=== PATIENT | male | born 1985 | race African-American/Black ===

== ENCOUNTER 2016-07-05 02:59 | Emergency (ER) | payer OTHER ==
[~2016-07-05 02:59] MED LIST: ALBUTEROL 0.5ML INH; ALBUTEROL MININEB NEB; ALBUTEROL17 GM INH; MEDROL4 MG/DOSE- PO; ORUDIS75 M1 PO; PEN-VEE K PO; PREDNISONE PO
== END 2016-07-05 04:11 | disposition home or self-care (01) ==
LOC: CED 02:59
DX: Z76.0 Encounter for issue of repeat prescription (principal); J45.901 Unspecified asthma with (acute) exacerbation; Z87.891 Personal history of nicotine dependence
CPT/HCPCS: 94644; 99283

== ENCOUNTER 2016-07-24 18:09 | Emergency (ER) | payer OTHER ==
--- NOTE | ~2016-07-24 | CR72 ---
[facility] A Service of [facility] & [facility] RADIOLOGY TEXT RESULTS PATIENT: CANDY LOPEZ LOCATION: [facility] : 89 UNIT #: [id number] AGE: [address]: Emma Soliman MD SEX: M ORDER DR: [id number] [facility] [address] [place], [place] [address] [id number] MR#: [id number] Acc #: [id number] NAME: CANDY LOPEZ. : 1985 SEX: M STUDY DATE/TIME: 07/24/2016 19:03 UNIT: [facility] ROOM: STUDY DESCRIPTION: CR Chest Single View Portable Attending Physician: Emma Soliman M.D. Ordering Physician: Emma Soliman M.D. Primary Care Physician: Raysa Ge M.D. MEDICAL IMAGING REPORT This report is preliminary unless electronic signature is present EXAM Portable chest. INDICATION Left-sided chest pain, shortness of air for the past 3 days. PROCEDURE Frontal view chest. COMPARISON 03/02/15 FINDINGS Heart size normal. Lungs are clear. No pleural fluid. No pneumothorax. IMPRESSION No active process. Dictated by... Oneil Gramajo M.D. THIS IS AN ELECTRONICALLY VERIFIED REPORT Oneil Gramajo M.D. at 07/25/2016 9:30 AM TRAY/chu TD: 07/24/2016 21:33 JOB #: [id number] MEDICAL IMAGING REPORT Page 1 of 1 COPY
== END 2016-07-24 20:22 | disposition home or self-care (01) ==
LOC: CED 18:09
DX: J45.901 Unspecified asthma with (acute) exacerbation (principal); J02.0 Streptococcal pharyngitis
CPT/HCPCS: 71010; 87880; 99285

== ENCOUNTER 2016-08-06 05:02 | Emergency (ER) | payer OTHER | END 2016-08-06 05:40 | disposition home or self-care (01) | LOC: CED 05:02 | DX: J45.901 Unspecified asthma with (acute) exacerbation (principal) | CPT/HCPCS: 99284 ==